=== PATIENT | female | born 1995 | race Caucasian/White ===

== ENCOUNTER → 2019-09-14 | Outpatient (CLI) | payer OTHER ==
[2019-09-14 10:24] LABS: BASO % 0 % (0-3); EOS # 0.1 x10^3/uL (0.0-0.7); EOS % 1 % (0-3); HEMATOCRIT 34.8 % (36.0-47.0); HEMOGLOBIN 11.9 g/dL (12.0-15.5); LYMPH # 1.8 x10^3/uL (1.0-4.8); LYMPH % 17 % (24-48); MEAN CORPUSCULAR HEMOGLOBIN 30 pg (25-35); MEAN CORPUSCULAR HGB CONC 34 g/dL (31-37); MEAN CORPUSCULAR VOLUME 88 fL (79-100); MONO # 0.5 x10^3/uL (0.0-1.1); MONO % 5 % (0-9); NEUT # 8.2 x10^3/uL (1.8-7.7); NEUT % 78 % (31-73); PLATELET COUNT 285 x10^3/uL (140-400); RED BLOOD COUNT 3.95 x10^6/uL (3.50-5.40); WHITE BLOOD COUNT 10.6 x10^3/uL (4.0-11.0)
--- NOTE | 2019-09-14 12:18 | RAD ---
Examination: PREG MORE THAN OR EQ TO 14 WKS History: Uterine size-date discrepancy Comparison/Correlation: None Findings: OB ultrasound exam was performed. Single living intrauterine gestation is present with heart rate of 140 bpm. Breech position is present. Posteriorly located placenta is identified. Amniotic fluid index of 15.1 cm normal. movement including cardiac activity is identified. Four-chamber heart is noted. 3 vessel umbilical cord and insertion noted. Fluid in the urinary bladder is evident. stomach, kidneys, spine, and brain are visualized. Ventricular outflow tracts and lateral ventricles could not be delineated due to the position. Biparietal diameter is 6.47 cm corresponding to 26 weeks 3 days. Head circumference is 24.39 cm corresponding to 26 weeks 2 days. Femoral circumference is 21.7 cm corresponding 26 weeks weeks 1 day. Femur length is 5.14 cm corresponding to 27 weeks 3 days. Head circumference to abdominal circumference ratio is 1.12. Estimated weight is 967 g. Average ultrasound age is 26 weeks 4 days. Ultrasound EDC is 04/18/2020. Maternal uterine cervix is 5.9 cm. Impression: Single living breech intrauterine gestation with average ultrasound age 26 weeks 4 days. This is 2 days less than gestational age by last menstrual period. Electronically signed by: Tano Almanza MD (09/14/2019 12:15 PM) [id number]
== END ==
LOC: LAB 09:51
PROVIDERS: ATTEND Obstetrics & Gynecology
DX: O09.90 Supervision of high risk pregnancy, unspecified, unspecified trimester (principal); Z3A.26 26 weeks gestation of pregnancy
CPT/HCPCS: 36415; 76805; 82950; 85025; 86850; 86900; 86901; 96372; J2791

== ENCOUNTER 2019-10-07 10:43 | Observation (INO) | payer OTHER ==
[2019-10-07] MEDS ORDERED: IV RINGERS,LACTATED 1000ML 1,000 ML IV SCH (11:00)
[2019-10-07 11:39] LABS: BILIRUBIN,URINE NEGATIVE (NEG); CLARITY,URINE CLOUDY; COLOR,URINE YELLOW; NITRITE,URINE NEGATIVE (NEG); PH,URINE 6.5 (<5.0-8.0); PROTEIN,URINE NEGATIVE (NEG-TRACE)
[2019-10-07 11:53] LABS: BACTERIA,URINE MANY /HPF (0-FEW); RBC,URINE RARE /HPF (0-2); SQUAMOUS EPITHELIAL CELL,UR MANY /LPF; WBC,URINE TNTC /HPF (0-4)
== END 2019-10-07 12:00 | disposition home or self-care (01) ==
LOC: 3 SO LND 10:43
PROVIDERS: ADMIT Obstetrics & Gynecology; ATTEND Obstetrics & Gynecology
DX: O36.8130 Decreased fetal movements, third trimester, not applicable or unspecified (principal); Z3A.30 30 weeks gestation of pregnancy; Z79.899 Other long term (current) drug therapy
CPT/HCPCS: 81001; 87086; G0378; G0379

== ENCOUNTER 2019-12-06 23:58 | Observation (INO) | payer OTHER ==
[2019-12-07] MEDS ORDERED: IV RINGERS,LACTATED 1000ML 1,000 ML IV SCH (00:15)
[2019-12-07] MEDS ORDERED: ACETAMINOPHEN 325 MG TABLET. PO PRN (00:15)
[2019-12-07 00:30] LABS: BILIRUBIN,URINE NEGATIVE (NEG); CLARITY,URINE CLEAR; COLOR,URINE YELLOW; NITRITE,URINE NEGATIVE (NEG); PH,URINE 6.5 (<5.0-8.0); PROTEIN,URINE NEGATIVE (NEG-TRACE)
[2019-12-07 00:36] LABS: BARBITURATES NEG (NEG); BENZODIAZEPINES NEG (NEG); CANNABINOIDS NEG (NEG); COCAINE NEG (NEG); METHADONE NEG (NEG); OPIATES NEG (NEG); PHENCYCLIDINE NEG (NEG)
[2019-12-07 00:44] LABS: BACTERIA,URINE MANY /HPF (0-FEW); RBC,URINE 0 /HPF (0-2); SQUAMOUS EPITHELIAL CELL,UR MANY /LPF
[2019-12-07 00:45] LABS: AMPHETAMINE/METHAMPHETAMINE NEG (NEG)
== END 2019-12-07 02:05 | disposition home or self-care (01) ==
LOC: 3 SO LND 23:58
PROVIDERS: ADMIT Obstetrics & Gynecology; ATTEND Obstetrics & Gynecology
DX: O62.9 Abnormality of forces of labor, unspecified (principal); Z3A.38 38 weeks gestation of pregnancy
CPT/HCPCS: 80307; 81001; 87086; G0378; G0379

== ENCOUNTER 2019-12-10 06:04 | Inpatient (IN) | payer OTHER ==
[~2019-12-10] VITALS: Ht 172.7 cm; Wt 119.7 kg
[2019-12-10] MEDS ORDERED: OXYTOCIN 30 UNIT/500 ML PREMIX 500 ML IV PRN ×3 (06:15→21:45)
[2019-12-10] MEDS ORDERED: MAG HYDROX/ALUMINUM HYD/SIMETH 30 ML ORAL.SUSP PO PRN ×2 (06:15→21:45)
[2019-12-10] MEDS ORDERED: TERBUTALINE 1 MG/ML VIAL. SQ PRN (06:15)
[2019-12-10] MEDS ORDERED: 0.9 % SODIUM CHLORIDE 10 ML DISP.SYRIN. IV PRN ×2 (06:15→21:45)
[2019-12-10] MEDS ORDERED: IV RINGERS,LACTATED 1000ML 1,000 ML IV PRN (06:15)
[2019-12-10] MEDS ORDERED: LIDOCAINE 1% PF 30 ML VIAL. INJ PRN (06:15)
[2019-12-10] MEDS ORDERED: ONDANSETRON PF 4 MG/2 ML VIAL. IVP PRN (06:15)
[2019-12-10] MEDS ORDERED: fentaNYL PF VIAL 100 MCG/2 ML VIAL IVP PRN (06:15)
[2019-12-10] MEDS ORDERED: ACETAMINOPHEN 325 MG TABLET. PO PRN ×2 (06:15→21:45)
[2019-12-10 06:41] LABS: BILIRUBIN,URINE NEGATIVE (NEG); CLARITY,URINE CLEAR; COLOR,URINE YELLOW; NITRITE,URINE NEGATIVE (NEG); PH,URINE 6.5 (<5.0-8.0); PROTEIN,URINE NEGATIVE (NEG-TRACE)
[2019-12-10 07:01] LABS: BASO % 0 % (0-3); EOS # 0.1 x10^3/uL (0.0-0.7); EOS % 1 % (0-3); HEMATOCRIT 30.4 % (36.0-47.0); HEMOGLOBIN 10.4 g/dL (12.0-15.5); LYMPH # 2.5 x10^3/uL (1.0-4.8); LYMPH % 22 % (24-48); MEAN CORPUSCULAR HEMOGLOBIN 27 pg (25-35); MEAN CORPUSCULAR HGB CONC 34 g/dL (31-37); MEAN CORPUSCULAR VOLUME 80 fL (79-100); MONO # 0.6 x10^3/uL (0.0-1.1); MONO % 5 % (0-9); NEUT # 8.2 x10^3/uL (1.8-7.7); NEUT % 71 % (31-73); PLATELET COUNT 291 x10^3/uL (140-400); RED BLOOD COUNT 3.79 x10^6/uL (3.50-5.40); RED CELL DISTRIBUTION WIDTH 14.2 % (11.5-14.5); WHITE BLOOD COUNT 11.5 x10^3/uL (4.0-11.0)
[2019-12-10 07:05] VITALS: BP 120/74
[2019-12-10] MEDS ORDERED: OXYTOCIN PREMIX 30 UNIT/500 ML NS BAG. IV ONE (07:30)
[2019-12-10 07:44] LABS: BACTERIA,URINE MANY /HPF (0-FEW); RBC,URINE 0 /HPF (0-2)
[2019-12-10 07:45] LABS: SQUAMOUS EPITHELIAL CELL,UR MANY /LPF
--- NOTE | 2019-12-10 13:17 | PDOC1 ---
OB - History Hx of Present Care: Good Care Ultrasounds: Normal mid trimester US Obstetrical Complications: None Medical Complications: None Past Family/Social History * Past Medical, Surgical, Family and Obstetric Histories reviewed from chart. Rubella: Immune RPR/VDRL: Negative GBS Status: Negative HBsAG: Negative OB - Chief Complaint & HPI Date of Admission: Date of Admission: Dec 10, 2019 at 06:04 Chief Complaint/History : 2 Para: 1 EGA: 39 Reason for admission: induction of labor Indication for induction: maternal discomfort Admission Nurse Assessment Rev: Yes OB - Admission Exam Physical Exam Vitals: VS - Last 72 Hours, by Label Date Time Temp Pulse Resp B/P (MAP) Pulse Ox O2 Delivery O2 Flow Rate FiO2 12/10/19 07:05 97.8 111 18 120/74 (89) 97 Room Air 97.8 HEENT: Normal Heart: Regular Rate Lungs: Clear Abdomen: Gravid, Non tender, Soft Extremities: Edema Reflexes: Normal Cervical Dilatation: 2cm Effacement: 75% Station: -3 Membranes: Intact Accelerations: Accelerations Present Decelerations: No decelerations Contractions on Admission: None Text A: 39 wks IUP IOL secondary discomforts P: Admit IOL pitocin. AUSTIN ALEXIS Jr, MD Dec 10, 2019 13:17
[2019-12-10] MEDS ORDERED: ROPIVacaine 0.2% PF 10 ML VIAL. ONE (15:00)
[2019-12-10] MEDS ORDERED: L&D EPIDURAL SYRINGE 50 ML ONE ×2 (15:00→19:21)
[2019-12-10] MEDS ORDERED: ROPIVacaine 0.2% PF 10 ML VIAL. EPID PRN (15:00)
[2019-12-10] MEDS ORDERED: NALOXONE 0.4 MG/ML VIAL. IV PRN (15:00)
[2019-12-10] MEDS ORDERED: ePHEDrine PF IN SALINE 50 MG/10 ML SYRINGE. IV PRN (15:00)
[2019-12-10] MEDS ORDERED: L&D EPIDURAL 50 ML SYRINGE. ONE (15:00)
[2019-12-10] MEDS: IV RINGERS,LACTATED 1000ML 1,000 ML IV SCH ×3 (15:48→20:22)
[2019-12-10] MEDS ORDERED: L&D EPIDURAL SYRINGE 50 ML EPID PRN (19:15)
--- NOTE | 2019-12-10 21:32 | PDOC ---
VAGINAL DELIVERY DATE DATE: 12/10/19 TIME: 21:31 : 2 Para: 2 EGA: 39 VAGINAL DELIVERY: VTX VACCUM ASSISTED: No PLACENTA: Spontaneous 8/9 SEX: Female WEIGHT Weight [ 7 lbs. 3 oz ] Nuchal Cord: Yes, Times 1 Amniotic Fluid: Clear PAIN: Epidural EPISIOTOMY: No EXTENSION: No EBL 300 ml COMPLICATIONS none CONDITION pt. stable Signs of Intrauterine Infectio: None Shoulder Dystocia: No AUSTIN ALEXIS Jr, MD Dec 10, 2019 21:32
[2019-12-10] MEDS ORDERED: MAGNESIUM HYDROXIDE 2,400 MG/30 ML ORAL.SUSP. PO PRN (21:45)
[2019-12-10] MEDS ORDERED: HYDROCORTISONE 1% TOPICAL OINTMENT 30GM TUBE. TP PRN (21:45)
[2019-12-10] MEDS ORDERED: TDaP (Adacel) per PROTOCOL. MC PRN (21:45)
[2019-12-10] MEDS ORDERED: PHENYLEPH/MINERAL OIL/PETROLAT RECTAL OINTMENT TUBE. RC PRN (21:45)
[2019-12-10] MEDS ORDERED: BENZOCAINE 20% TOPICAL AEROSOL SPRAY 57GM CAN. TP PRN (21:45)
[2019-12-10] MEDS ORDERED: ZOLPIDEM 5 MG TABLET. PO PRN (21:45)
[2019-12-10] MEDS ORDERED: SIMETHICONE 80 MG TAB.CHEW PO PRN (21:45)
[2019-12-10] MEDS ORDERED: MMR per PROTOCOL. MC PRN (21:45)
[2019-12-10] MEDS ORDERED: diphenhydrAMINE HCL 25 MG CAPSULE PO PRN (21:45)
[2019-12-10] MEDS: IBUPROFEN 400 MG TABLET. PO PRN (23:11)
[2019-12-10 23:45] VITALS: BP 102/61
[2019-12-11] MEDS: DOCUSATE SODIUM 100 MG CAPSULE. PO PRN (02:43)
[2019-12-11] MEDS: oxyCODONE/APAP 5/325 1 TAB TABLET PO PRN ×4 (02:45→21:20)
[2019-12-11 05:40] VITALS: BP 130/80
[2019-12-11] MEDS: IBUPROFEN 400 MG TABLET. PO PRN ×3 (05:43→23:31)
[2019-12-11] MEDS: MULTIVITAMIN with MINERAL TABLET. PO SCH (08:18)
[2019-12-11] MEDS: FERROUS SULFATE 325 MG TABLET. PO SCH ×2 (08:19→17:23)
[2019-12-11 08:52] LABS: BASO % 0 % (0-3); EOS % 1 % (0-3); HEMATOCRIT 27.8 % (36.0-47.0); HEMOGLOBIN 9.6 g/dL (12.0-15.5); LYMPH # 2.1 x10^3/uL (1.0-4.8); LYMPH % 19 % (24-48); MEAN CORPUSCULAR HEMOGLOBIN 28 pg (25-35); MEAN CORPUSCULAR HGB CONC 34 g/dL (31-37); MEAN CORPUSCULAR VOLUME 80 fL (79-100); MONO # 0.6 x10^3/uL (0.0-1.1); MONO % 5 % (0-9); NEUT # 8.1 x10^3/uL (1.8-7.7); NEUT % 75 % (31-73); PLATELET COUNT 265 x10^3/uL (140-400); RED BLOOD COUNT 3.48 x10^6/uL (3.50-5.40); RED CELL DISTRIBUTION WIDTH 14.7 % (11.5-14.5); WHITE BLOOD COUNT 10.8 x10^3/uL (4.0-11.0)
[2019-12-11 11:28] VITALS: BP 113/69
--- NOTE | 2019-12-11 11:57 | PDOC ---
OB Progress Note Date of Service 12/11/19 Time of Evaluation 1155 Notes Pt. feeling well. No complaints. Lab Laboratory Tests Test 12/10/19 06:15 12/10/19 06:35 12/10/19 06:40 12/11/19 08:20 Urine Collection Type Unknown Urine Color Yellow Urine Clarity Clear Urine pH 6.5 (<5.0-8.0) Urine Specific Eads 1.025 (1.000-1.030) Urine Protein Negative mg/dL (NEG-TRACE) Urine Glucose (UA) Negative mg/dL (NEG) Urine Ketones (Stick) Negative mg/dL (NEG) Urine Blood Negative (NEG) Urine Nitrite Negative (NEG) Urine Bilirubin Negative (NEG) Urine Urobilinogen Dipstick 1.0 mg/dL (0.2 mg/dL) Urine Leukocyte Esterase Small (NEG) Urine RBC 0 /HPF (0-2) Urine WBC 1-4 /HPF (0-4) Urine Squamous Epithelial Cells Many /LPF Urine Bacteria Many /HPF (0-FEW) Urine Mucus Mod /LPF Coronavirus (COVID-19)(PCR) Negative (NEGATIVE) White Blood Count 11.5 x10^3/uL (4.0-11.0) 10.8 x10^3/uL (4.0-11.0) Red Blood Count 3.79 x10^6/uL (3.50-5.40) 3.48 x10^6/uL (3.50-5.40) Hemoglobin 10.4 g/dL (12.0-15.5) 9.6 g/dL (12.0-15.5) Hematocrit 30.4 % (36.0-47.0) 27.8 % (36.0-47.0) Mean Corpuscular Volume 80 fL (79-100) 80 fL (79-100) Mean Corpuscular Hemoglobin 27 pg (25-35) 28 pg (25-35) Mean Corpuscular Hemoglobin Concent 34 g/dL (31-37) 34 g/dL (31-37) Red Cell Distribution Width 14.2 % (11.5-14.5) 14.7 % (11.5-14.5) Platelet Count 291 x10^3/uL (140-400) 265 x10^3/uL (140-400) Neutrophils (%) (Auto) 71 % (31-73) 75 % (31-73) Lymphocytes (%) (Auto) 22 % (24-48) 19 % (24-48) Monocytes (%) (Auto) 5 % (0-9) 5 % (0-9) Eosinophils (%) (Auto) 1 % (0-3) 1 % (0-3) Basophils (%) (Auto) 0 % (0-3) 0 % (0-3) Neutrophils # (Auto) 8.2 x10^3/uL (1.8-7.7) 8.1 x10^3/uL (1.8-7.7) Lymphocytes # (Auto) 2.5 x10^3/uL (1.0-4.8) 2.1 x10^3/uL (1.0-4.8) Monocytes # (Auto) 0.6 x10^3/uL (0.0-1.1) 0.6 x10^3/uL (0.0-1.1) Eosinophils # (Auto) 0.1 x10^3/uL (0.0-0.7) 0.0 x10^3/uL (0.0-0.7) Basophils # (Auto) 0.0 x10^3/uL (0.0-0.2) 0.0 x10^3/uL (0.0-0.2) Treponema pallidum Antibody Nonreactive (Nonreactive) Laboratory Tests Test 12/11/19 08:20 White Blood Count 10.8 x10^3/uL (4.0-11.0) Red Blood Count 3.48 x10^6/uL (3.50-5.40) Hemoglobin 9.6 g/dL (12.0-15.5) Hematocrit 27.8 % (36.0-47.0) Mean Corpuscular Volume 80 fL (79-100) Mean Corpuscular Hemoglobin 28 pg (25-35) Mean Corpuscular Hemoglobin Concent 34 g/dL (31-37) Red Cell Distribution Width 14.7 % (11.5-14.5) Platelet Count 265 x10^3/uL (140-400) Neutrophils (%) (Auto) 75 % (31-73) Lymphocytes (%) (Auto) 19 % (24-48) Monocytes (%) (Auto) 5 % (0-9) Eosinophils (%) (Auto) 1 % (0-3) Basophils (%) (Auto) 0 % (0-3) Neutrophils # (Auto) 8.1 x10^3/uL (1.8-7.7) Lymphocytes # (Auto) 2.1 x10^3/uL (1.0-4.8) Monocytes # (Auto) 0.6 x10^3/uL (0.0-1.1) Eosinophils # (Auto) 0.0 x10^3/uL (0.0-0.7) Basophils # (Auto) 0.0 x10^3/uL (0.0-0.2) Medications Current Medications Sodium Chloride (Normal Saline Flush) 3 ml QSHIFT PRN IV AFTER MEDS AND BLOOD DRAWS; Start 12/10/19 at 06:15 Ringer's Solution 1,000 ml @ 125 mls/hr Q8H PRN IV hydration Last administered on 12/10/19at 06:46; Start 12/10/19 at 06:15; Stop 12/11/19 at 10:38; Status DC Fentanyl Citrate (Fentanyl 2ml Vial) 100 mcg PRN Q30MIN PRN IVP Severe pain; Start 12/10/19 at 06:15 Acetaminophen (Tylenol) 650 mg PRN Q6HRS PRN PO MILD PAIN / TEMP > 100.3'F; St art 12/10/19 at 06:15 Ondansetron HCl (Zofran) 8 mg PRN Q6HRS PRN IVP NAUSEA/VOMITING 1ST CHOICE Last administered on 12/10/19at 16:10; Start 12/10/19 at 06:15 Al Hydroxide/Mg Hydroxide (Mylanta Plus Xs) 30 ml PRN Q4HRS PRN PO HEARTBURN / GAS; Start 12/10/19 at 06:15; Stop 12/11/19 at 10:38; Status DC Terbutaline Sulfate (Brethine) 0.25 mg 1X PRN PRN SQ SEE COMMENTS; Start at 06:15; Stop 12/11/19 at 06:14; Status DC Lidocaine HCl (Xylocaine 1% Pf 30ml Vial) 30 ml 1X PRN PRN INJ SEE COMMENTS; S tart 12/10/19 at 06:15; Stop 12/12/19 at 06:14 Oxytocin/Sodium Chloride 500 ml @ 0 mls/hr CONT PRN IV SEE I/O RECORD; Start 12/10/19 at 06:15; Stop 12/11/19 at 10:38; Status DC Oxytocin/Sodium Chloride 500 ml @ 0 mls/hr CONT PRN PRN IV Post delivery blee ding Last administered on 12/10/19at 15:50; Start 12/10/19 at 06:15 Ibuprofen (Motrin) 800 mg PRN Q6HRS PRN PO MODERATE PAIN 4-6 Last administered on 12/11/19at 05:43; Start 12/10/19 at 06:15; Stop 12/11/19 at 10:38; Status DC Oxytocin/Sodium Chloride (Oxytocin Premix Infusion) 30 unit STK-MED ONCE IV ; Start 12/10/19 at 07:30; Stop 12/10/19 at 12:24; Status DC Ringer's Solution 1,000 ml @ 125 mls/hr Q8H IV Last administered on 12/10/19at 20:22; Start 12/10/19 at 14:52 Ephedrine Sulfate (ePHEDrine PF IN SALINE SYRINGE) 10 mg PRN Q2MIN PRN IV IF SBP<90 Last administered on 12/10/19at 16:11; Start 12/10/19 at 15:00 Naloxone HCl (Narcan) 0.04 mg PRN Q1MIN PRN IV SEE COMMENTS; Start 12/10/19 at 15:00 Ropivacaine (Naropin 0.2%) 20 ml 1X PRN PRN EPID PER ANESTHESIA; Start 12/10/19 at 15:00; Stop 12/11/19 at 14:59 Fentanyl Citrate 50 ml @ As Directed STK-MED ONCE .ROUTE ; Start 12/10/19 at 15:00; Stop 12/10/19 at 15:00; Status DC Fentanyl Citrate 50 ml @ As Directed STK-MED ONCE .ROUTE ; Start 12/10/19 at 19:21; Stop 12/10/19 at 19:21; Status DC Fentanyl Citrate 50 ml @ 14 mls/hr CONT PRN EPID PAIN Last administered on 12/10/19at 19:28; Start 12/10/19 at 19:15; Stop 12/11/19 at 09:00; Status DC Sodium Chloride (Normal Saline Flush) 10 ml QSHIFT PRN IV AFTER MEDS AND BLOOD DRAWS; Start 12/10/19 at 21:45 Oxytocin/Sodium Chloride 500 ml @ 62.5 mls/hr CONT PRN IV SEE I/O RECORD; Start 12/10/19 at 21:45; Stop 12/11/19 at 05:44; Status DC Acetaminophen (Tylenol) 650 mg PRN Q6HRS PRN PO MILD PAIN / TEMP > 100.3'F; Start 12/10/19 at 21:45 Ibuprofen (Motrin) 800 mg PRN Q8HRS PRN PO INFLAMMATION/PAIN PREVENTION; Start 12/10/19 at 21:45 Docusate Sodium (Colace) 100 mg PRN BID PRN PO HARD STOOL Last administered on 12/11/19at 02:43; Start 12/10/19 at 21:45 Magnesium Hydroxide (Milk Of Magnesia) 2,400 mg PRN DAILY PRN PO CONSTIPATION; Start 12/10/19 at 21:45 Al Hydroxide/Mg Hydroxide (Mylanta Plus Xs) 30 ml PRN Q4HRS PRN PO HEARTBURN / GAS; Start 12/10/19 at 21:45 Simethicone (Gas-X) 80 mg PRN AFTMEALHC PRN PO GAS / BLOATING; Start 12/10/19 at 21:45 Diphenhydramine HCl (Benadryl) 25 mg PRN Q6HRS PRN PO ITCHING; Start 12/10/19 at 21:45 Benzocaine (Americaine) 1 spray PRN QID PRN TP TOPICAL PAIN Last administered on 12/10/19at 23:11; Start 12/10/19 at 21:45 Phenyleph/Shark Oil/Min Oil/Petrol (Preparation H) 1 cheyanne PRN QID PRN RC RECTAL PAIN; Start 12/10/19 at 21:45 Hydrocortisone (Cortaid) 1 cheyanne PRN QID PRN TP PERINEAL PAIN; Start 12/10/19 at 21:45 Ferrous Sulfate (Feosol) 325 mg BIDWMEALS PO Last administered on 12/11/19at 08:19; Start 12/11/19 at 08:00 Zolpidem Tartrate (Ambien) 5 mg PRN QHS PRN PO INSOMNIA, MAY REPEAT X1; Start 12/10/19 at 21:45 Info (Do NOT chart on this placeholder) 1 ea 1X PRN PRN MC SEE COMMENTS; Start 12/10/19 at 21:45 Info (Do NOT chart on this placeholder) 1 ea 1X PRN PRN MC SEE COMMENTS; Start 12/10/19 at 21:45 Oxycodone/ Acetaminophen (Percocet 5/325) 2 tab PRN Q4HRS PRN PO MODERATE PAIN, SEVERE PAIN Last administered on 12/11/19at 08:19; Start 12/10/19 at 21:45 Multivitamins (Thera M Plus) 1 tab DAILY PO Last administered on 12/11/19at 08:18; Start 12/11/19 at 09:00 Exam Abd: soft, non tender, fundus firm Assessment PPD#1 s/p Plan of Care: Continue current Tx, Mgmt AUSTIN ALEXIS Jr, MD Dec 11, 2019 11:57
[2019-12-11 17:20] VITALS: BP 102/68
--- NOTE | 2019-12-11 21:45 | NUR ---
Pt transferred to room 668. Report given to [place]
[2019-12-11 22:01] VITALS: BP 105/56
[2019-12-12 05:00] VITALS: BP 101/53
[2019-12-12] MEDS: FERROUS SULFATE 325 MG TABLET. PO SCH (08:48)
[2019-12-12] MEDS: MULTIVITAMIN with MINERAL TABLET. PO SCH (08:48)
[2019-12-12] MEDS: DOCUSATE SODIUM 100 MG CAPSULE. PO PRN (08:48)
[2019-12-12] MEDS: IBUPROFEN 400 MG TABLET. PO PRN (08:49)
[2019-12-12] MEDS ORDERED: DIPH,PERTUSS(ACELL),TET VAC/PF 0.5 ML SYRINGE. VAX IM ONE (09:00)
--- NOTE | 2019-12-12 12:25 | PDOC3 ---
OB DISCHARGE SUMMARY DATE OF ADMISSION: 12/10/19 DATE OF DISCHARGE: 12/12/19 REASON FOR ADMISSION: Induction of labor INTRAPARTUM PROCEDURES: Spontanous Vag Deliv DISCHARGE DIAGNOSIS: Term Delivered DISCHARGE INFORMATION: Activity (ad roe), Diet (regular), Instructions (pelvic rest x 6 wks) HOSPITAL COURSE Term gestation delivered vaginally without complications AUSTIN ALEXIS Jr, MD Dec 12, 2019 12:25
[2019-12-12] MEDS ORDERED: IBUP-1027 PO (12:27)
--- NOTE | 2019-12-12 12:29 | DISCH ---
DISCHARGE INSTRUCTIONS Condition on Discharge Condition on Discharge: Stable Activity After Discharge Activity Instructions for Disc: Activity as tolerated Lifting Instructions after Dis: No heavy lifting Driving Instructions after Dis: Do not drive today Diet after Discharge Diet after Discharge: Regular Contacting the [facility] after DC Call your doctor for: Concerns you may have Follow-Up Follow up with: Dr. Francois in 6 wks AUSTIN FRANOCIS Jr, MD Dec 12, 2019 12:29
[2019-12-12 15:00] VITALS: BP 131/82
--- NOTE | 2019-12-12 15:45 | NUR ---
Discharge and follow up instructions reviewed and given to pt. Rx for ibuprofen also given. Pt denied any questions or complaints at this time. Pt ambulated out of hospital with staff.
== END 2019-12-12 15:45 | disposition home or self-care (01) | DRG 807 ==
LOC: 3 SO LND 06:04 → 3 NORTH 23:25
PROVIDERS: ADMIT Obstetrics & Gynecology; ATTEND Obstetrics & Gynecology
PROC: 10E0XZZ Delivery of Products of Conception, External Approach (ICD-10-PCS; principal; 2019-12-10)
PROC: 3E033VJ Introduction of Other Hormone into Peripheral Vein, Percutaneous Approach (ICD-10-PCS; 2019-12-10)
PROC: 00HU33Z Insertion of Infusion Device into Spinal Canal, Percutaneous Approach (ICD-10-PCS; 2019-12-10)
PROC: 3E0R3BZ Introduction of Anesthetic Agent into Spinal Canal, Percutaneous Approach (ICD-10-PCS; 2019-12-10)
PROC: 3E0234Z Introduction of Serum, Toxoid and Vaccine into Muscle, Percutaneous Approach (ICD-10-PCS; 2019-12-11)
PROC: 3E0234Z Introduction of Serum, Toxoid and Vaccine into Muscle, Percutaneous Approach (ICD-10-PCS; 2019-12-12)
DX: O69.81X0 Labor and delivery complicated by cord around neck, without compression, not applicable or unspecified (principal); Z37.0 Single live birth; O26.893 Other specified pregnancy related conditions, third trimester; Z20.828 Contact with and (suspected) exposure to other viral communicable diseases; Z3A.39 39 weeks gestation of pregnancy; Z67.41 Type O blood, Rh negative; Z23 Encounter for immunization
CPT/HCPCS: 36415; 81001; 85025; 85461; 86592; 86850; 86900; 86901; 87086; 90471; 90715; J2405; J2590; J2791; J2795; J3010; J7120; G0378; U0003-CS